=== PATIENT | male | born 1945 | race Two or more races ===

== ENCOUNTER 2019-10-16 08:32 | Day surgery (SDC) | payer OTHER ==
[~2019-10-16 08:32] MED LIST: COZAAR100 MG PO; FLOVEN OT
[2019-10-16] MEDS ORDERED: ULTRACET PO (14:22)
== END 2019-10-16 18:15 | disposition home or self-care (01) ==
LOC: CIR.AMB 08:32 → ADM 12:45 → CIR.AMB 18:15
PROVIDERS: ATTEND Surgery
DX: D12.8 Benign neoplasm of rectum (principal)
CPT/HCPCS: 0184T; 64430